=== PATIENT | female | born 1990 | race Asian ===

== ENCOUNTER 2019-04-14 17:49 | Inpatient (IN) | payer MEDICAID ==
[~2019-04-14] VITALS: Ht 165.1 cm; Wt 130.6 kg
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
[2019-04-14 18:14] VITALS: BP 146/95
--- NOTE | 2019-04-14 18:30 | NUR ---
ED Nurse Note: Urine collected and sent down to lab.
--- NOTE | 2019-04-14 19:13 | NUR ---
HAND-OFF: Report given to CORNELIUS Mei.
--- NOTE | 2019-04-14 19:16 | NUR ---
ED Nurse Note: Patient continues to complain of radiating spine pain, 03/30, will consult ER provider.
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
--- NOTE | 2019-04-14 20:00 | NUR ---
ED Nurse Note: Patient tolerated IV start well, blood drawn and sent to lab. mom at bedside,N/S fluid running. Will continue to monitor.
[2019-04-14 20:45] LABS: BASOPHILS % (AUTO) 0.9 % (0.0-2.0); EOSINOPHILS % (AUTO) 0.4 % (0.0-3.0); HEMATOCRIT 41.3 % (37.0-47.0); HEMOGLOBIN 14.1 G/DL (12.0-16.0); LYMPHOCYTES % (AUTO) 36.7 % (20.0-45.0); MEAN CORPUSCULAR VOLUME 89 FL (80-99); MONOCYTES % (AUTO) 8.4 % (1.0-10.0); NEUTROPHILS % (AUTO) 53.7 % (45.0-75.0); PLATELET COUNT 342 K/UL (150-450); RED BLOOD COUNT 4.65 M/UL (4.20-5.40); RED CELL DISTRIBUTION WIDTH 11.3 % (11.6-14.8); WHITE BLOOD COUNT 11.3 K/UL (4.8-10.8)
[2019-04-14 20:50] LABS: ANION GAP 14 mmol/L (5-15); BLOOD UREA NITROGEN 6 mg/dL (7-18); CALCIUM 10.2 MG/DL (8.5-10.1); CARBON DIOXIDE 27 MMOL/L (21-32); CHLORIDE 102 MMOL/L (98-107); CREATININE 0.8 MG/DL (0.55-1.30); POTASSIUM 3.6 MMOL/L (3.5-5.1); SODIUM 143 MMOL/L (136-145)
[2019-04-14 21:03] LABS: ALANINE AMINOTRANSFERASE 43 U/L (12-78); ALBUMIN 4.6 G/DL (3.4-5.0); ALBUMIN/GLOBULIN RATIO 1.1 (1.0-2.7); ALKALINE PHOSPHATASE 66 U/L (46-116); ASPARTATE AMINO TRANSFERASE 48 U/L (15-37); BILIRUBIN,TOTAL 0.4 MG/DL (0.2-1.0); CREATINE KINASE 1112 U/L (26-308)
[2019-04-14] MEDS ORDERED: HALOPERIDOL5 MG/1 ML IJ (21:26)
[2019-04-14] MEDS ORDERED: DOXYLAMINE SUCC PO (21:26)
[2019-04-14] MEDS ORDERED: AMBIEN5 MG ORAL (21:26)
[2019-04-14] MEDS ORDERED: NORCO 5-325 TA1 EACH ORAL (21:26)
[2019-04-14] MEDS ORDERED: KLONOPIN0.5 MG ORAL (21:26)
[2019-04-14] MEDS ORDERED: FLUOXETINE20 MG/5 ML ORAL (21:26)
[2019-04-14] MEDS ORDERED: MEDROXYPROGESTER5 MG PO (21:26)
[2019-04-14] MEDS ORDERED: ASPIRIN325 MG ORAL (21:26)
--- NOTE | 2019-04-14 22:13 | NUR ---
ED Nurse Note: Report called into Krzysztof SHIELDS.
[2019-04-14 22:28] LABS: APPEARANCE,URINE SLIGHTLY CLOUDY; BILIRUBIN, URINE NEGATIVE (NEGATIVE); GLUCOSE, URINE (UA) NEGATIVE (NEGATIVE); KETONES,URINE 1+ (NEGATIVE); LEUKOCYTE ESTERASE ,URINE 2+ (NEGATIVE); NITRITE,URINE NEGATIVE (NEGATIVE); PH,URINE 5 (4.5-8.0); PROTEIN,URINE 2+ (NEGATIVE); UROBILINOGEN,URINE NORMAL MG/DL (0.0-1.0)
[2019-04-14 22:31] LABS: COLOR,URINE YELLOW
--- NOTE | 2019-04-14 22:33 | NUR ---
ED Nurse Note: Patient transported to floor without incident by or scrub tech and RN.
[2019-04-15] VITALS (8 sets, daily range): BP systolic 125–148; BP diastolic 67–90
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
[2019-04-15] MEDS: Zolpidem 5mg tab ORAL PRN ×2 (00:31→22:19)
[2019-04-15] MEDS: HYDROcodone/Acetamin 5/325 tab ORAL PRN ×4 (00:31→18:10)
[2019-04-15] MEDS: Morphine Sulfate 2mg/ml Inj(IV/IM USE ONLY) IVP PRN ×4 (04:00→17:01)
--- NOTE | 2019-04-15 07:00 | NUR ---
HAND-OFF: Report given to Lane SHIELDS. Endorsed plan of care.
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
--- NOTE | 2019-04-15 08:49 | NUR ---
NURSE NOTES: Received report from CORNELIUS Blankenship . patient stated at change of shift that she "can't wait for the doctorfor 8 hours. I have to go home" Patient appeared anxious and stated she had neck and back pain--Dr on unit now--discussed need for psych eval and soc work consult. stated patient can't leave without psych approval. Mother at bedside now and patient calming downj after morphine given for pain per emar. Patient oob walking with steady gait and eating breakfast. Bed in lowest , locked position and adjuster piano action socks on. RETREAD OPERATOR charting in room as added safety. Cont'd with plan of care.
[2019-04-15 09:25] LABS: BASOPHILS % (AUTO) 0.9 % (0.0-2.0); EOSINOPHILS % (AUTO) 0.6 % (0.0-3.0); HEMATOCRIT 37.4 % (37.0-47.0); HEMOGLOBIN 12.3 G/DL (12.0-16.0); LYMPHOCYTES % (AUTO) 36.4 % (20.0-45.0); MEAN CORPUSCULAR VOLUME 91 FL (80-99); MONOCYTES % (AUTO) 7.2 % (1.0-10.0); PLATELET COUNT 300 K/UL (150-450); RED CELL DISTRIBUTION WIDTH 12.6 % (11.6-14.8); WHITE BLOOD COUNT 7.1 K/UL (4.8-10.8)
[2019-04-15] MEDS: Aspirin Baby 81mg ORAL SCH (09:44)
[2019-04-15 09:50] LABS: ANION GAP 12 mmol/L (5-15); BLOOD UREA NITROGEN 6 mg/dL (7-18); CARBON DIOXIDE 26 MMOL/L (21-32); CHLORIDE 105 MMOL/L (98-107); CREATINE KINASE 951 U/L (26-308); CREATININE 0.8 MG/DL (0.55-1.30); POTASSIUM 3.5 MMOL/L (3.5-5.1); SODIUM 142 MMOL/L (136-145)
[2019-04-15] MEDS: clonazePAM 0.5mg tab ORAL PRN ×2 (10:12→17:01)
[2019-04-15] MEDS: MEDROXYPROGESTERONE 2.5 MG ORAL SCH (10:24)
--- NOTE | 2019-04-15 13:59 | NUR ---
NURSE NOTES: Patient stated pain decreased slightly after morphine. Appears anxious but cooperative and mostly calm.--active listening and emotional support offered with good effect. AOX4 and breathing easily with no sign of cardiac distress. Ate lunch with no nvd.
--- NOTE | 2019-04-15 15:28 | NUR ---
NURSE NOTES: Sudden increased agitation at approximately 230 pm . This RN was at lunch, motor bike mechanic calmed patient down and medicated per emar. Currently patient calm as previously seen. IVF disconnected to avoid IV access loss during agitated period of time. Addendum: 04/15/19 at 1538 by Thee Sheldon RN Patient calm now , apologized mary kelly, I am ok now" Mother called and is at bedside.
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
[2019-04-15] MEDS ORDERED: Haloperidol 5mg/ml Inj IM PRN (18:15)
--- NOTE | 2019-04-15 18:58 | NUR ---
NURSE NOTES: Patient found still co pain despite all meds per MAR given--none due at the moment. Walking to toilet with steady gait but patient fatigued--tired appearance but restless. Patient sitting in chair quietly now.
--- NOTE | 2019-04-15 19:30 | NUR ---
NURSE NOTES: Recieved Report from CORNELIUS Sherman. Patient is in bed, awake and responsive, breathing regular with no distress noted at this time. Patient's mother is at bedside with patient. Bed is in lowest position, breaks engaged, call light within reach at all times. Patient's IV is intact and running prescribed fluids. At this time patient is calm. Will continue to monitor.
--- NOTE | 2019-04-15 19:48 | NUR ---
NURSE NOTES: Report given to CORNELIUS Healy.
[2019-04-15] MEDS: DiphenhydrAMINE 50mg/ml Inj IM PRN (20:37)
[2019-04-15] MEDS: LORazepam Inj 2mg/ml 1ml IM PRN (20:37)
[2019-04-16] VITALS (8 sets, daily range): BP systolic 133–158; BP diastolic 82–102
[2019-04-16] MEDS: HYDROcodone/Acetamin 5/325 tab ORAL PRN ×3 (06:18→18:39)
--- NOTE | 2019-04-16 07:14 | NUR ---
NURSE NOTES: Received report CORNELIUS Henderson. Patient asleep with IVF running at 100ml/hr. Bed in lowest , locked postion with call wong in reach. Sitter in room for neighboring bed 2 . Tele monitor found not reading currently. Replaced leads. Addendum: 04/16/19 at 0739 by Thee Sheldon RN Currently reading 96NSR on tele. Patient eating breakfast and stated "I got some sleep. I feel better now." with quiet steady voice. opening eyes spontaneously and aox4 with calm, affect.
[2019-04-16] MEDS: clonazePAM 0.5mg tab ORAL PRN ×2 (07:52→17:21)
[2019-04-16] MEDS: Aspirin Baby 81mg ORAL SCH (08:02)
[2019-04-16] MEDS: MEDROXYPROGESTERONE 2.5 MG ORAL SCH (08:03)
[2019-04-16 08:49] LABS: CREATINE KINASE 633 U/L (26-308)
[2019-04-16] MEDS: Morphine Sulfate 2mg/ml Inj(IV/IM USE ONLY) IVP PRN ×2 (09:24→16:25)
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
--- NOTE | 2019-04-16 10:19 | NUR ---
NURSE NOTES: Dr Esther wilson tele with transfer to [facility] this morning. patient oob with steady gait to toilet to void. Pain management consult placed. Continues to co pain when walking oob. currently calm and cooperative breathign easily on RA , no sign of cardiac distress and VSS. Bed in lowest , locked position. Call wong in reach. Patient is napping intermittently.
--- NOTE | 2019-04-16 11:53 | Consultation ---
History of Present Illness General Date patient seen: Apr 16, 2019 Chief Complaint: Present Illness Allergies: Coded Allergies: No Known Allergies (Unverified , 04/14/19) Medication History Scheduled Aspirin* (Aspirin*), 325 MG ORAL DAILY, (Reported) Clonazepam* (Klonopin*), 0.5 MG ORAL Q6H, (Reported) Fluoxetine Hcl (Fluoxetine Hcl), 20 MG ORAL DAILY, (Reported) Scheduled PRN Hydrocodone Bit/Acetaminophen 5-325* ([place] 5-325*), 1 TAB ORAL Q6H PRN for For Pain, (Reported) Zolpidem Tartrate* (Ambien*), 10 MG ORAL BEDTIME PRN for Insomnia, (Reported) Miscellaneous Medications Doxylamine Succinate (Doxylamine Succinate), 25 MG PO, (Reported) Haloperidol Lactate (Haloperidol), 5 MG IJ, (Reported) Medroxyprogesterone Acetate (Medroxyprogesterone Acetate), 5 MG PO, (Reported) Patient History Healthcare decision maker Resuscitation status Advanced Directive on File Physical Exam Last 24 Hour Vital Signs Date Time Temp Pulse Resp B/P (MAP) Pulse Ox O2 Delivery O2 Flow Rate FiO2 04/16/19 10: 98.6 04/16/19 09:00 Room Air 04/16/19 08:00 89 04/16/19 07:56 98.6 95 20 152/98 (116) 100 04/16/19 04:00 69 04/16/19 03:52 98.4 96 20 133/83 (100) 100 04/16/19 00:00 70 04/15/19 23:59 97.8 68 18 126/67 (86) 99 04/15/19 21:00 Room Air 04/15/19 20:03 97.2 77 18 135/71 (92) 98 04/15/19 20:00 133 04/15/19 18:46 97.5 04/15/19 16:00 102 04/15/19 15:49 97.5 88 18 147/83 (104) 97 04/15/19 12:02 97.1 82 18 141/80 (100) 95 04/15/19 12:00 102 04/15/19 11:58 97.1 82 19 141/80 (100) 96 Intake and Output 04/15/19 04/16/19 19:00 07:00 Intake Total 1260 ml 1918 ml Balance 1260 ml 1918 ml Intake Oral 1160 ml 118 ml IV Total 100 ml 1800 ml # Voids 7 4 Laboratory Tests Test 04/16/19 06:05 Total Creatine Kinase 633 U/L (26-308) H Height (Feet): 5 Height (Inches): 5.00 Weight (Pounds): 280 Medications Current Medications Medications (Trade) Dose Ordered Sig/Drew Route PRN Reason Start Time Stop Time Status Last Admin Dose Admin Acetaminophen/ Hydrocodone Bitart ([place] 5/325) 1 tab Q6H PRN ORAL For Pain 04/15/19 00:15 04/22/19 00:14 04/16/19 06:18 Aspirin (ASA) 81 mg DAILY ORAL 04/15/19 09:00 05/15/19 08:59 04/16/19 08:02 Clonazepam (KlonoPIN) 0.5 mg Q6H PRN ORAL For Anxiety 04/15/19 02:30 04/22/19 02:29 04/16/19 07:52 Diphenhydramine HCl (Benadryl) 25 mg Q8H PRN IM Agitation 04/15/19 18:15 05/15/19 18:14 04/15/19 20:37 Fluoxetine HCl (PROzac) 20 mg DAILY ORAL 04/15/19 09:00 05/15/19 08:59 04/16/19 08:02 Haloperidol (Haldol) 5 mg Q6H PRN ORAL Agitation 04/15/19 02:30 05/15/19 02:29 04/16/19 11:00 Haloperidol Lactate (Haldol) 5 mg Q8H PRN IM Agitation 04/15/19 18:15 05/15/19 18:14 Lorazepam (Ativan 2mg/ml 1ml) 1 mg Q8H PRN IM Agitation 04/15/19 18:15 04/22/19 18:14 04/15/19 20:37 Medroxyprogesterone Acetate (Provera) 5 mg DAILY ORAL 04/15/19 09:00 05/15/19 08:59 04/16/19 08:03 Morphine Sulfate (Morphine Sulfate) 2 mg Q4H PRN IVP For Breakthrough Pain 04/15/19 02:30 04/22/19 02:29 04/16/19 09:24 Ondansetron HCl (Zofran) 4 mg Q4H PRN IVP Nausea & Vomiting 04/15/19 06:30 05/15/19 02:29 Sodium Chloride 1,000 ml @ 100 mls/hr Q10H IV 04/15/19 00:15 05/15/19 00:14 04/16/19 11:03 Zolpidem Tartrate (Ambien) 5 mg HSPRN PRN ORAL Insomnia 04/15/19 00:15 04/22/19 00:14 04/15/19 22:19 Assessment/Plan Assessment/Plan: (1) Cervical and Lumbar Sprain (2) Cervical and Lumbar Radiculopathy (3) Left index Finger Fx s/p surgery (4) Morbid obesity seen dictated Neel Boland Apr 16, 2019 11:53
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
--- NOTE | 2019-04-16 12:20 | NUR ---
NURSE NOTES: Faxed patient request release form to [facility] medical records pertaining to diagnostic test imaging: . Awaiting reply.
[2019-04-16] MEDS: Methocarbamol 500mg tab ORAL PRN (12:40)
[2019-04-16] MEDS: LORazepam Inj 2mg/ml 1ml IM PRN ×2 (13:03→13:06)
[2019-04-16] MEDS: DiphenhydrAMINE 50mg/ml Inj IM PRN ×2 (13:03→13:07)
--- NOTE | 2019-04-16 13:13 | NUR ---
NURSE NOTES:1255pm Patient suddenly came out to sarkar yelling "I have to leave!" Patient removed IV and was extremely agitated. IM given after speaking with Dr Santana of Haldol, ativan, and benadryl. Patient continues to be agitated but is lying in bed with mother at bedside.
[2019-04-16] MEDS ORDERED: Sennosides 8.6mg tab ORAL PRN (13:30)
--- NOTE | 2019-04-16 13:39 | NUR ---
NURSE NOTES: Records requested from [facility] faxed back with no records found for DOS
--- NOTE | 2019-04-16 14:04 | NUR ---
NURSE NOTES: Patient has calmed down and is dozing lightly with mother at bedside. Currently, SR 100BPM on tele.
[2019-04-16] MEDS: Bisacodyl EC 5mg tab ORAL PRN (16:26)
[2019-04-16] MEDS: Docusate 100mg cap ORAL SCH (17:16)
--- NOTE | 2019-04-16 17:39 | NUR ---
NURSE NOTES: Patient currently in bed eating dinner. Calm and cooperative currently and NSR on tele 85 BPM. VSS. Bed in lowest, locked position with call wong in reach. Mother back at bedside now. Multiple visits to ensure patient safety. Patient ate dinner with gusto and requested seconds of sherbet. AOX4, breathing easily RA and no sign of cardiac distress.
--- NOTE | 2019-04-16 18:28 | NUR ---
NURSE NOTES: Patient requested pain meds for 10 pain--norco returned to Pyxis when patient found asleep and mother at bedside, so med returned to pyxis. Patient awoke and requested pain med again. Will retrieve now. Patient was ambulating in sarkar and stated she needed to sit down--after a moment she was steady, but used wheelchair to transport her back to room.
--- NOTE | 2019-04-16 19:27 | NUR ---
NURSE NOTES: Received report from CORNELIUS Sherman. Patient is in bed, responsive to verbal stimuli. Breathing regular with no distress noted at this time. Patient appears drowsy and is still complaining of some pain, but appears comfortable in bed. Bed is in lowest position, breaks engaged, call light within reach. Patient's IV is intact and running fluids at prescribed rate. Will continue to monitor.
--- NOTE | 2019-04-16 19:33 | NUR ---
NURSE NOTES: Report given to CORNELIUS Guaman and CORNELIUS Healy.
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
[2019-04-17] VITALS (7 sets, daily range): BP systolic 127–170; BP diastolic 80–98
[2019-04-17] MEDS: Zolpidem 5mg tab ORAL PRN (00:44)
[2019-04-17] MEDS: Morphine Sulfate 2mg/ml Inj(IV/IM USE ONLY) IVP PRN ×5 (01:04→20:15)
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
--- NOTE | 2019-04-17 07:27 | NUR ---
HAND-OFF: Report given to CORNELIUS Sherman. Patient is asleep lying semi-benjamin's; resting comfortably. In stable condition. 1:1 sitter at bedside.
--- NOTE | 2019-04-17 07:34 | NUR ---
NURSE NOTES: Received report from CORNELIUS Guaman. Patient sleeping and then up walking to toilet with stand by assist. IVF running to R hand patent catheter. Patient stated "I did get some sleep and I feel little better." Breathing easily on RA and no sign of c ardiac distress. Patient up in chair now to eat breakfast. Cynthia Perera, at bedside.
--- NOTE | 2019-04-17 07:46 | NUR ---
NURSE NOTES: CT spine planned today
--- NOTE | 2019-04-17 07:50 | NUR ---
NURSE NOTES: Called Dr Kay' call service notified of pos UTI and no records found with request from [facility]. Addendum: 04/17/19 at 0751 by Thee Sheldon RN Time of call 747am
[2019-04-17] MEDS: Docusate 100mg cap ORAL SCH ×2 (08:49→17:47)
[2019-04-17] MEDS: Aspirin Baby 81mg ORAL SCH (08:49)
[2019-04-17] MEDS: MEDROXYPROGESTERONE 2.5 MG ORAL SCH (08:49)
[2019-04-17] MEDS: Bisacodyl EC 5mg tab ORAL PRN (08:49)
[2019-04-17] MEDS: clonazePAM 0.5mg tab ORAL PRN (08:49)
--- NOTE | 2019-04-17 08:52 | General Progress Note ---
Assessment/Plan Assessment/Plan: (1) Cervical and Lumbar Sprain (2) Cervical and Lumbar Radiculopathy (3) Left index Finger Fx s/p surgery (4) Morbid obesity Pt to be continued on [place], Morphine and Robaxin Neurontin increased to 300mg TID. D/w Dr. Ramos and he concurred. Subjective Date patient seen: Apr 17, 2019 Time patient seen: 08:15 - am Allergies: Coded Allergies: No Known Allergies (Unverified , 04/14/19) Subjective REVIEW OF SYSTEMS: Denies rash, fever, chills, sweating, dizziness, drowsiness, blurred vision, sore throat, or change in her weight. No shortness of breath or chest pain. No nausea, vomiting, diarrhea, or blood in the stool or urine. No bowel or bladder incontinence. No dysuria. She is complaining of neck and back pain. SUBJECTIVE: In bed reports pain has reduced with the muscle relaxer and Neurontin. [facility] records not found. She will be having the CT scan of C spine today. Objective Last 24 Hour Vital Signs Date Time Temp Pulse Resp B/P (MAP) Pulse Ox O2 Delivery O2 Flow Rate FiO2 04/17/19 08:00 98.2 95 22 148/94 (112) 95 04/17/19 08:00 99 04/17/19 04:00 75 04/17/19 04:00 98.0 83 19 150/84 (106) 98 04/17/19 00:00 98.2 20 150/84 (106) 98 04/17/19 00:00 72 04/16/19 21:00 Room Air 04/16/19 20:00 83 04/16/19 20:00 98.1 20 146/82 (103) 97 04/16/19 19:35 97.2 04/16/19 17:32 85 04/16/19 17:15 97.2 04/16/19 16:18 97.2 18 150/91 (110) 95 04/16/19 15:26 100 18 155/91 (112) 97 04/16/19 13:36 122 157/102 (120) 04/16/19 13:26 111 04/16/19 13:25 98.1 04/16/19 13:00 96.6 100 20 138/99 (112) 100 04/16/19 12:00 97.3 100 20 158/102 (120) 100 04/16/19 09:00 Room Air Intake and Output 04/16/19 04/17/19 19:00 07:00 Intake Total 1640 ml 1345 ml Balance 1640 ml 1345 ml Intake Oral 1440 ml 240 ml IV Total 200 ml 1105 ml # Voids 7 3 Height (Feet): 5 Height (Inches): 5.00 Weight (Pounds): 280 Objective GENERAL: Alert, awake, and oriented. LUNGS: Decreased breath sounds bilaterally. HEART: S1 and S2 regular. ABDOMEN: Obese. EXTREMITIES: No cyanosis. No clubbing. NEURO: No changes. Neel Boland Apr 17, 2019 08:52
[2019-04-17 09:37] LABS: CREATINE KINASE 564 U/L (26-308)
[2019-04-17] MEDS: HYDROcodone/Acetamin 5/325 tab ORAL PRN ×2 (09:48→17:47)
--- NOTE | 2019-04-17 09:52 | NUR ---
NURSE NOTES:Dr Kay called again regarding UTI. Dr Boland (pain management team) at bedside asking about records from [facility]--none received . This RN will attempt further discovery of records. Addendum: 04/17/19 at 1020 by Thee Sheldon RN Dr Ger Irby called back. He was aware of urine culture. No new orders.
--- NOTE | 2019-04-17 09:54 | NUR ---
CASE MANAGEMENT:INITIAL REVIEW 28 YR OLD FEMALE VAMSI FROM HOME CC: LOWER BACK PAIN SI: ALTERED MENTAL STATUS; RHABDOMYOLYSIS 98.0 105 18 146/95 99% ON RA WBC 11.3; TOTAL CK 1112; AST 48 IS: IVF NS BOLUS X2 : 2E TELE UNIT (PATIENT IS MED SURG) CASE MANAGEMENT:REVIEW 04/15/19 SI: ALTERED MENTAL STATUS; RHABDOMYOLYSIS 97.6 79 18 136/68 95% ON RA TOTAL CK 951 IS: IVF NS @100HR HALDOL IM Q8/PRN BENADRYL IM Q8/PRN ATIVAN IM Q8/PRN PROVERA PO QD PROZAC PO QD ASA PO QD IV ZOFRAN Q4/PRN IV MORPHINE SULFATE Q4/PRN KLONOPIN PO Q6/PRN : 2E TELE UNIT (PATIENT IS MED SURG) CASE MANAGEMENT:REVIEW 04/16/19 SI: ALTERED MENTAL STATUS; RHABDOMYOLYSIS 98.6 95 20 152/98 100% ON RA TOTAL CK 633 IS: IVF NS @100HR HALDOL IM Q8/PRN BENADRYL IM Q8/PRN ATIVAN IM Q8/PRN PROVERA PO QD PROZAC PO QD ASA PO QD IV ZOFRAN Q4/PRN IV MORPHINE SULFATE Q4/PRN KLONOPIN PO Q6/PRN COLACE PO Q12HR DULCOLAX PO QD/PRN ROBAXIN PO Q8HR/PRN : 2E TELE UNIT (PATIENT IS MED SURG) CASE MANAGEMENT:REVIEW 04/17/19 SI: ALTERED MENTAL STATUS; CERVICAL/LUMBAR RADICULOPATHY; RHABDOMYOLYSIS 98.2 95 22 148/94 100% ON RA TOTAL CK 564 IS: IVF NS @100HR NEURONTIN PO Q8HR HALDOL IM Q8/PRN BENADRYL IM Q8/PRN ATIVAN IM Q8/PRN PROVERA PO QD PROZAC PO QD ASA PO QD IV ZOFRAN Q4/PRN IV MORPHINE SULFATE Q4/PRN KLONOPIN PO Q6/PRN COLACE PO Q12HR DULCOLAX PO QD/PRN ROBAXIN PO Q8HR/PRN : 2E TELE UNIT (PATIENT IS MED SURG) DCP: HOME WHEN MEDICALLY CLEARED
--- NOTE | 2019-04-17 09:55 | NUR ---
NURSE NOTES: Patient screamed out "I need pain pill right now!" heard by this RN from sarkar nearby. Found patient standing at bedside with mother soothing her. Administered norco and patient used toilet to void, then laid down in bed with calm with eyes closed.
--- NOTE | 2019-04-17 10:07 | NUR ---
*-* NO INSURANCE INFORMATION ON THE BAR UNABLE TO SEND CLINICALS OR REVIEWS *-*
--- NOTE | 2019-04-17 10:19 | NUR ---
NURSE NOTES: this RN sent fax again to [facility] for records with expanded dates of service.
--- NOTE | 2019-04-17 10:20 | NUR ---
NURSE NOTES: Patient was calm and alert at time of transport for CT spine. She consented to get records from [facility] (again).
--- NOTE | 2019-04-17 11:39 | NUR ---
NURSE NOTES: Spoke with [facility] records. They received the request for release of records for March and will fax response dorie. Also spoke with [facility] on phone who patient authorized to fax information to 2E regarding R index finger--patient had appointment today for follw up after repair done previously.
--- NOTE | 2019-04-17 12:35 | Diagnostic Imaging Report ---
Indication: Cervical trauma/pain. Technique: Continuous helical imaging of the cervical spine was obtained transaxially from the skull base to the upper thoracic spine. 2-D coronal and sagittal reformatted images were obtained. Automatic Exposure Control was utilized. Total Dose length Product (DLP): 505.[address] Dose Index Volume (CTDIvol): 16.8 mGy Comparison: None Findings: There is significant limitation in evaluation of the mid to lower cervical spine due to artifact related to the patient's shoulders resulting in beam starvation. There is no evidence of an acute fracture or malalignment. Atlantoaxial alignment appears normal. Height and configuration of the vertebral bodies and intervertebral discs are within normal limits. Uncovertebral joints and facets are unremarkable. There is no soft tissue swelling. Impression: Negative cervical spine CT. Study limited by artifact. The CT scanner at [facility] is accredited by the [employer] and the scans are performed using dose optimization techniques as appropriate to a performed exam including Automatic Exposure control.
[2019-04-17] MEDS: Methocarbamol 500mg tab ORAL PRN (13:42)
[2019-04-17] MEDS ORDERED: Bactrim-DS 1 tab ORAL SCH (14:25)
--- NOTE | 2019-04-17 14:25 | NUR ---
NURSE NOTES: Report given to Juarez. Transferred to [facility]. Sitter at bedside with patient. Verified all belongings with patient at time of trransfer including phone and canine service teacher, snacks, birkenstocks. IVF running. Patient aox4 Addendum: 04/17/19 at 1431 by Thee Sheldon RN Breathing easily on RA and stated she is comfortable "I am alright now". Calm affect. Patient called and spoke to mother on her own phone to make her aware of transfer. Tele removed. Addendum: 04/17/19 at 1909 by Thee Sheldon RN Medical records received by fax from [facility]--patient had transferred to at that time. Hand delivered records to CORNELIUS Pizarro. Also, reminder to Juarez to follow up with Claudia in pharmacy regarding records protrayal/history for provera administration.
[2019-04-17] MEDS ORDERED: Zolpidem 5mg tab ORAL PRN (14:30)
[2019-04-17] MEDS ORDERED: DiphenhydrAMINE 50mg/ml Inj IM PRN (14:30)
--- NOTE | 2019-04-17 16:38 | NUR ---
*-* INSURANCE *-* ALL CLINICALS AND REVIEWS HAVE BEEN FAXED TO: [employer] LUCIUS: NICHOLE P: [phone] F: [phone]
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
--- NOTE | 2019-04-17 19:46 | NUR ---
HAND-OFF: Report given to CORNELIUS HODGES.
--- NOTE | 2019-04-17 19:47 | NUR ---
NURSE NOTES: Pt is alert and oriented x4, sitting up in a chair, appears somewhat drowsy but restless. Sitter at bedside with patient. IV patent, asymptomatic, IVF running. Breathing easily on RA and stated she is in pain and her pain medication is "due at 2009"- will continue to monitor patient
[2019-04-17] MEDS: Bactrim-DS 1 tab ORAL SCH (20:16)
[2019-04-17] MEDS ORDERED: Methocarbamol 500mg tab ORAL PRN (22:00)
[2019-04-17] MEDS: LORazepam Inj 2mg/ml 1ml IM PRN (23:32)
[2019-04-17] MEDS: Haloperidol 5mg/ml Inj IM PRN (23:32)
[2019-04-18] VITALS (8 sets, daily range): BP systolic 133–170; BP diastolic 59–101
[2019-04-18] MEDS: HYDROcodone/Acetamin 5/325 tab ORAL PRN ×3 (00:28→12:39)
[2019-04-18] MEDS: clonazePAM 0.5mg tab ORAL PRN ×4 (00:28→22:05)
[2019-04-18] MEDS: Morphine Sulfate 2mg/ml Inj(IV/IM USE ONLY) IVP PRN ×3 (01:42→13:34)
[2019-04-18] MEDS ORDERED: Bisacodyl EC 5mg tab ORAL PRN ×2 (08:00→19:59)
[2019-04-18] MEDS ORDERED: Sennosides 8.6mg tab ORAL PRN ×2 (08:00→20:01)
--- NOTE | 2019-04-18 08:00 | NUR ---
NURSE NOTES: Received patient in bed, alert and awakex4, able to make her needs known, sitter @ bedside. No episodes of screaming but noted with restlessness and agitation by transferring from the bed to chair and asking for pain medications. RN explained about pain medication schedule that nothing is due @ this time. Patient states that she could wait until it is due. Patient is ambulatory but little bit unsteady @ this time. Fall precaution observed and reminded sitter. IV intact, IVF running. No s/s of infiltration on IV site. Will continue plan of care.
[2019-04-18 08:11] LABS: ANION GAP 12 mmol/L (5-15); BLOOD UREA NITROGEN 3 mg/dL (7-18); CALCIUM 9.1 MG/DL (8.5-10.1); CARBON DIOXIDE 25 MMOL/L (21-32); CHLORIDE 104 MMOL/L (98-107); CREATININE 0.9 MG/DL (0.55-1.30); POTASSIUM 3.5 MMOL/L (3.5-5.1); SODIUM 141 MMOL/L (136-145)
[2019-04-18] MEDS: Bactrim-DS 1 tab ORAL SCH ×2 (08:16→22:05)
[2019-04-18] MEDS: Docusate 100mg cap ORAL SCH ×2 (08:17→17:39)
[2019-04-18] MEDS ORDERED: Aspirin Baby 81mg ORAL SCH (09:00)
[2019-04-18] MEDS ORDERED: MEDROXYPROGESTERONE 2.5 MG ORAL SCH (09:00)
[2019-04-18] MEDS ORDERED: Enoxaparin 40mg Inj SUBQ SCH (09:00)
[2019-04-18 09:29] LABS: CREATINE KINASE 728 U/L (26-308)
--- NOTE | 2019-04-18 11:00 | NUR ---
NURSE NOTES: Patient's mom @ the bedside and spoke to Dr. Funk about plan of care.
--- NOTE | 2019-04-18 11:58 | NUR ---
CASE MANAGEMENT:REVIEW 04/18/19 SI: ACUTE ENCEPHALOPATHY; CERVICAL/LUMBAR RADICULOPATHY; RHABDOMYOLYSIS 98.1 90 20 153/85 97% ON RA BUN 3; TOTAL CK 728 IS: IVF NS @100HR LOVENOX SQ QD* ROBAXIN PO Q8/PRN* NEURONTIN PO Q8HR* BACTRIM PO Q12HR* HALDOL IM Q8/PRN BENADRYL IM Q8/PRN ATIVAN IM Q8/PRN PROVERA PO QD* : 4E MED SURG DCP: HOME WHEN MEDICALLY CLEARED/ HOME SAFETY EVAL PLAN: PT EVAL CLEAR LIQ DIET LAB CK Addendum: 04/18/19 at 1221 by KIM PEREZ LVN CASE MANAGEMENT:REVIEW 04/18/19 SI: ACUTE ENCEPHALOPATHY; CERVICAL/LUMBAR RADICULOPATHY; RHABDOMYOLYSIS 98.1 90 20 153/85 97% ON RA BUN 3; TOTAL CK 728 IS: LOVENOX SQ QD* ROBAXIN PO Q8/PRN* NEURONTIN PO Q8HR* BACTRIM PO Q12HR* HALDOL IM Q8/PRN BENADRYL IM Q8/PRN ATIVAN IM Q8/PRN PROVERA PO QD* : 4E MED SURG DCP: HOME WHEN MEDICALLY CLEARED/ HOME SAFETY EVAL PLAN: PT EVAL REG DIET LAB CK
--- NOTE | 2019-04-18 12:05 | NUR ---
NURSE NOTES: RN put wrong diet order under Dr. Capps. Order was cancelled.
--- NOTE | 2019-04-18 13:40 | NUR ---
*-* INSURANCE *-* ALL CLINICALS AND REVIEWS HAVE BEEN FAXED TO: [employer] NCM: NICHOLE P: [phone] F: [phone] CALLED NCM:NICHOLE TO CHECK IF SHE HAS BEEN RECEIVING CLINICALS TRIED CALLING NUMBER NO ANSWER OR VOICEMAIL Addendum: 04/18/19 at 1505 by HUMZA ARMSTRONG NCM: MONICA P: [phone] REF# [id number]
--- NOTE | 2019-04-18 14:16 | General Progress Note ---
Assessment/Plan Assessment/Plan: (1) Cervical and Lumbar Sprain (2) Cervical and Lumbar Radiculopathy (3) Left index Finger Fx s/p surgery (4) Morbid obesity Pt to be continued on Neurontin, [place], Morphine and Robaxin D/w Dr. Ramos and he concurred. Subjective Date patient seen: Apr 18, 2019 Time patient seen: 01:45 - pm Allergies: Coded Allergies: No Known Allergies (Unverified , 04/14/19) Subjective REVIEW OF SYSTEMS: Denies rash, fever, chills, sweating, dizziness, drowsiness, blurred vision, sore throat, or change in her weight. No shortness of breath or chest pain. No nausea, vomiting, diarrhea, or blood in the stool or urine. No bowel or bladder incontinence. No dysuria. She is complaining of neck and back pain. SUBJECTIVE: Patient is in bed and pain is better tolerated on the increase of Neurontin, using 5 Morphine and 4 [place] in the last 24hrs. No new complaints at this time. Pain is at a moderate level. Objective Last 24 Hour Vital Signs Date Time Temp Pulse Resp B/P (MAP) Pulse Ox O2 Delivery O2 Flow Rate FiO2 04/18/19 12:00 97.5 97 20 147/96 (113) 98 04/18/19 09:00 Room Air 04/18/19 08:00 98.1 90 20 153/85 (107) 97 04/18/19 04:00 98.3 90 20 158/94 (115) 98 04/18/19 00:00 97.9 86 20 148/59 (88) 98 04/17/19 21:00 98.0 94 20 140/80 (100) 98 04/17/19 21:00 Room Air 04/17/19 20:28 98.3 97 20 170/98 (122) 97 04/17/19 16:00 98.3 97 20 127/86 (100) 97 Intake and Output 04/17/19 04/18/19 19:00 07:00 Intake Total 1600 ml 400 ml Balance 1600 ml 400 ml Intake Oral 1500 ml IV Total 100 ml 400 ml # Voids 8 6 Laboratory Tests 04/18/19 07:45: Sodium Level 141, Potassium Level 3.5, Chloride Level 104, Carbon Dioxide Level 25, Anion Gap 12, Blood Urea Nitrogen 3L, Creatinine 0.9, Estimat Glomerular Filtration Rate > 60, Glucose Level 116H, Calcium Level 9.1, Total Creatine Kinase 728H Height (Feet): 5 Height (Inches): 5.00 Weight (Pounds): 280 Objective GENERAL: Alert, awake, and oriented. LUNGS: Decreased breath sounds bilaterally. HEART: S1 and S2 regular. ABDOMEN: Obese. EXTREMITIES: No cyanosis. No clubbing. NEURO: No changes. Neel Boland Apr 18, 2019 14:16
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
[2019-04-18] MEDS ORDERED: Sodium Chloride 550 ML IV SCH (16:45)
--- NOTE | 2019-04-18 16:50 | NUR ---
NURSE NOTES: Patient came to the station and asked for pain medication,Rn let patient sit on the chair, patient was perspiring and noted with excessive salivation and drools, noted with slight jerky movement. V/S stable, afebrile. Alert and oriented x4, able to make her needs known. Rn explained to the patient that no pain med is due and while Rn was talking to the patient patient dozed off. Assited patient back to room safely without issue.Patient's mom came and stayed with patient.per mom patient has been having perspiring and drooling since Wednesday. RN left to message to Dr. Dean regarding patient's condition. Awaiting for return call.
--- NOTE | 2019-04-18 16:59 | Cardiology Report ---
APPROVED REPORT EKG Measurement Heart [id number] ME [id number] [id number] Normal sinus rhythm Normal ECG
[2019-04-18] MEDS: LORazepam Inj 2mg/ml 1ml IM PRN ×2 (17:40→22:07)
[2019-04-18] MEDS: Haloperidol 5mg/ml Inj IM PRN (17:40)
--- NOTE | 2019-04-18 17:55 | NUR ---
NURSE NOTES: Patient is sitting in the chair screaming and agitation with restlessness, she is back and forth to the restroom and bed, mom @ bedside, non -pharmaceutical intervention was ineffective. Given ativan and haldol IM, seperated the site.Asssited patient to back in bed.Will continue to monitor.
--- NOTE | 2019-04-18 18:05 | NUR ---
NURSE NOTES: Patient is in bed, mom @ bedside, patient tries to get up without assist. Noted with perspiring,her is face warm to touch.Patient is agitated. Patient's blood pressure is 170/101 and pulse is fluctuating from 100-126.Patient denies chest pain or SOB @ this time. O2sat is 98% in room air. Paged Dr. Kay's covering.
--- NOTE | 2019-04-18 18:15 | NUR ---
NURSE NOTES: patient is in bed, more calm @ this time. Rechecked V/S BP 146/96, pulse is 115. Received a call from Dr. Doss to transfer patient to tele. Charge nurse and housed dry cleaning supervisor notified.
--- NOTE | 2019-04-18 18:50 | NUR ---
NURSE NOTES: Transferred patient to tele safely and report given to Melvi. All belongings were sent with the patient. Patient's mom stated that patient had clothing and medications brought from home but when tele nurse received patient from ER ,it was not addressed in belongings list.Her only belonging logged in the paper was cell phone and in flight crew member. Endorsed to tele nurse.
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
[2019-04-18] MEDS ORDERED: Methocarbamol 500mg tab ORAL PRN (20:00)
[2019-04-18] MEDS ORDERED: Haloperidol 5mg/ml Inj IM PRN ×2 (20:00→20:15)
--- NOTE | 2019-04-18 20:00 | NUR ---
NURSE NOTES: QUALITY CONTROL TESTER at bedside with patient.
[2019-04-18] MEDS ORDERED: Morphine Sulfate 2mg/ml Inj(IV/IM USE ONLY) IVP PRN (20:01)
[2019-04-18] MEDS: Zolpidem 5mg tab ORAL PRN (22:05)
[2019-04-18] MEDS: Sodium Chloride 550 ML IV SCH (22:08)
--- NOTE | 2019-04-18 23:00 | NUR ---
NURSE NOTES: RN at bedside with patient continuously monitoring patient.
[2019-04-19] VITALS: BP 108/70
[2019-04-19] MEDS: Sodium Chloride 550 ML IV SCH ×6 (00:47→22:06)
[2019-04-19 04:00] VITALS: BP 149/89
--- NOTE | 2019-04-19 04:21 | NUR ---
NURSE NOTES: Resting throughout the night. No significant change of condition noted. Will continue to monitor.
--- NOTE | 2019-04-19 07:30 | NUR ---
HAND-OFF: Report given to CORNELIUS Brunson. Plan of care endorsed.
--- NOTE | 2019-04-19 07:30 | NUR ---
NURSE NOTES: Pt received from CORNELIUS Soni in stabel condition with no cardiopulmonary distress noted. Pt is awake in bed, AAO x3, on RA, ST on cardiac monitor technician (currently 112 bpm), pt noted to be mildly diaphoretic and shaking, VS noted and recorded, no skin alterations noted. pt has a LFA 22g IV. Sitter (Yesenia) at bedside. Bed in lowest position, alarm on, side rails up x3, call light within reach. Will continue to monitor.
[2019-04-19 08:00] VITALS: BP 136/89
[2019-04-19] MEDS: Enoxaparin 40mg Inj SUBQ SCH (08:23)
[2019-04-19] MEDS: LORazepam Inj 2mg/ml 1ml IM PRN (08:26)
[2019-04-19] MEDS: MEDROXYPROGESTERONE 2.5 MG ORAL SCH (08:26)
[2019-04-19] MEDS: Bactrim-DS 1 tab ORAL SCH ×2 (08:26→20:34)
[2019-04-19] MEDS: Docusate 100mg cap ORAL SCH ×2 (08:26→17:21)
--- NOTE | 2019-04-19 08:45 | NUR ---
PT NOTE Received MD order for PT evaluation however patient transferred to tele. Will need new MD order for PT evaluation due to transfer to tele. Patient discharged from PT at this time. Discussed with Nannette SHIELDS, will follow.
--- NOTE | 2019-04-19 08:47 | General Progress Note ---
Assessment/Plan Assessment/Plan: (1) Cervical and Lumbar Sprain (2) Cervical and Lumbar Radiculopathy (3) Left index Finger Fx s/p surgery (4) Morbid obesity Pt to be continued on Neurontin, [place], Morphine and Robaxin D/w Dr. Ramos and he concurred. Subjective Date patient seen: Apr 19, 2019 Time patient seen: 08:15 - am Allergies: Coded Allergies: No Known Allergies (Unverified , 04/14/19) Subjective REVIEW OF SYSTEMS: Denies rash, fever, chills, sweating, dizziness, drowsiness, blurred vision, sore throat, or change in her weight. No shortness of breath or chest pain. No nausea, vomiting, diarrhea, or blood in the stool or urine. No bowel or bladder incontinence. No dysuria. She is complaining of neck and back pain. SUBJECTIVE: Patient showing no signs of pain or distress. Pain has been reducing and tolerated on the [place] and Morphine as needed. no new complaints at this time. Objective Last 24 Hour Vital Signs Date Time Temp Pulse Resp B/P (MAP) Pulse Ox O2 Delivery O2 Flow Rate FiO2 04/19/19 04:00 80 04/19/19 04:00 98.1 91 20 149/89 (109) 95 04/19/19 00:00 97.3 91 19 108/70 (83) 95 04/19/19 00:00 83 04/18/19 21:00 Room Air 04/18/19 20:30 98.5 87 20 133/83 (100) 97 04/18/19 20:00 135 04/18/19 20:00 97.0 114 22 151/80 (103) 95 04/18/19 18:05 98.7 132 20 170/101 (124) 99 04/18/19 16:00 97.9 90 20 149/94 (112) 99 04/18/19 12:00 97.5 97 20 147/96 (113) 98 04/18/19 09:00 Room Air Intake and Output 04/18/19 04/19/19 18:59 06:59 Intake Total 525 ml 1525 ml Balance 525 ml 1525 ml Intake Oral 400 ml 400 ml IV Total 125 ml 1125 ml # Voids 7 6 # Bowel Movements 4 Height (Feet): 5 Height (Inches): 5.00 Weight (Pounds): 287 Objective GENERAL: Alert, awake, and oriented. LUNGS: Decreased breath sounds bilaterally. HEART: S1 and S2 regular. ABDOMEN: Obese. EXTREMITIES: No cyanosis. No clubbing. NEURO: No changes. Neel Boland Apr 19, 2019 08:47
[2019-04-19] MEDS ORDERED: Aspirin Baby 81mg ORAL SCH (09:00)
[2019-04-19] MEDS ORDERED: Miralax 17gm pkt ORAL PRN (10:00)
--- NOTE | 2019-04-19 10:07 | NUR ---
CASE MANAGEMENT:REVIEW 04/19/19 SI: ACUTE ENCEPHALOPATHY; CERVICAL/LUMBAR RADICULOPATHY; RHABDOMYOLYSIS; UTI 97.2 112 22 136/89 98% ON RA 04/18=BUN 3; TOTAL CK 728 IS: LOVENOX SQ QD ROBAXIN PO Q8/PRN* NEURONTIN PO Q8HR BACTRIM PO Q12HR* HALDOL IM Q8/PRN BENADRYL IM Q8/PRN ATIVAN IM Q8/PRN PROVERA PO QD ASA PO QD COLACE PO BID PROZAC PO QQ AMBIEN PO HS : TX 2E TELE UNIT DCP: HOME WHEN MEDICALLY CLEARED/ HOME SAFETY EVAL Addendum: 04/19/19 at 1426 by KIM PEREZ LVN CASE MANAGEMENT:REVIEW 04/19/19 PATIENT TRANSFERRED TO TELE UNIT: PATIENT FOUND PERSPIRING AND DROOLING; HR 120'S SUSTAIN; BP 170/101 SI: ACUTE ENCEPHALOPATHY; CERVICAL/LUMBAR RADICULOPATHY; RHABDOMYOLYSIS; UTI 97.2 112 22 136/89 98% ON RA 04/18=BUN 3; TOTAL CK 728 IS: LOVENOX SQ QD ROBAXIN PO Q8/PRN* NEURONTIN PO Q8HR BACTRIM PO Q12HR* HALDOL IM Q8/PRN BENADRYL IM Q8/PRN ATIVAN IM Q8/PRN PROVERA PO QD ASA PO QD COLACE PO BID PROZAC PO QQ AMBIEN PO HS : TX 2E TELE UNIT DCP: HOME WHEN MEDICALLY CLEARED/ HOME SAFETY EVAL
[2019-04-19] MEDS ORDERED: Aspirin EC 81mg tab ORAL SCH (10:30)
--- NOTE | 2019-04-19 10:57 | NUR ---
RD ASSESSMENT & RECOMMENDATIONS SEE CARE ACTIVITY FOR COMPLETE ASSESSMENT DAILY ESTIMATED NEEDS: Needs based on Obese, 74kg adj 20-25 kcals/kg 0416-1727 total kcals 1-1.2 g protein/kg 74-89 g total protein 25-30 mL/kg 6029-0593 total fluid mLs NUTRITION DIAGNOSIS: Obese, etiology unknown as evidenced by BMI morbidly obese per guidelines, pt is 224% of ideal body weight. PO DIET RECOMMENDATIONS: Maintain regular diet w/ current variable po intake ADDITIONAL RECOMMENDATIONS: 1) Obtain calibrated bed scale wts Standing preferable as able 2) Monitor renal labs w/ Rhabdo dx 3) BG mildly elev, monitor need for carb control diet Consider A1C
[2019-04-19 11:03] LABS: BASOPHILS % (AUTO) 0.6 % (0.0-2.0); EOSINOPHILS % (AUTO) 0.5 % (0.0-3.0); HEMATOCRIT 41.5 % (37.0-47.0); HEMOGLOBIN 13.7 G/DL (12.0-16.0); LYMPHOCYTES % (AUTO) 17.3 % (20.0-45.0); MEAN CORPUSCULAR VOLUME 91 FL (80-99); MONOCYTES % (AUTO) 6.8 % (1.0-10.0); NEUTROPHILS % (AUTO) 74.9 % (45.0-75.0); PLATELET COUNT 326 K/UL (150-450); RED BLOOD COUNT 4.57 M/UL (4.20-5.40); RED CELL DISTRIBUTION WIDTH 12.7 % (11.6-14.8); WHITE BLOOD COUNT 9.7 K/UL (4.8-10.8)
[2019-04-19 11:12] LABS: ALANINE AMINOTRANSFERASE 47 U/L (12-78); ALBUMIN 4.2 G/DL (3.4-5.0); ALKALINE PHOSPHATASE 62 U/L (46-116); ANION GAP 10 mmol/L (5-15); ASPARTATE AMINO TRANSFERASE 56 U/L (15-37); BILIRUBIN,TOTAL 0.4 MG/DL (0.2-1.0); BLOOD UREA NITROGEN 5 mg/dL (7-18); CALCIUM 9.2 MG/DL (8.5-10.1); CARBON DIOXIDE 25 MMOL/L (21-32); CHLORIDE 103 MMOL/L (98-107); CREATINE KINASE 1292 U/L (26-308); CREATININE 0.8 MG/DL (0.55-1.30); POTASSIUM 3.8 MMOL/L (3.5-5.1); SODIUM 138 MMOL/L (136-145)
[2019-04-19 12:00] VITALS: BP 141/75
[2019-04-19] MEDS ORDERED: LORazepam Inj 2mg/ml 1ml IV PRN ×2 (13:11→14:30)
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
[2019-04-19 16:00] VITALS: BP 143/92
[2019-04-19] MEDS: clonazePAM 0.5mg tab ORAL PRN (16:04)
[2019-04-19] MEDS: HYDROcodone/Acetamin 5/325 tab ORAL PRN (17:21)
--- NOTE | 2019-04-19 19:07 | NUR ---
HAND-OFF: Report given to Billy Herndon RN. Pt in stable condition.
[2019-04-19 20:00] VITALS: BP 120/58
--- NOTE | 2019-04-19 20:10 | NUR ---
Pt received from Omar SHIELDS. Pt stable. No acute distress. Sinus tach on surveillance system monitor. VS stable. IV intact. Sitter 1:1 at bedside. Bed in lowest position, call light within reach. Continue with plan of care.
[2019-04-19] MEDS ORDERED: Fleet's Mineral Oil Enema RECTAL SCH (21:00)
[2019-04-19] MEDS: Methocarbamol 500mg tab ORAL SCH (21:11)
[2019-04-19] MEDS: Zolpidem 5mg tab ORAL PRN (22:41)
[2019-04-20] VITALS: BP 129/59
[2019-04-20] MEDS: Sodium Chloride 550 ML IV SCH ×2 (02:48→07:39)
[2019-04-20 04:00] VITALS: BP 124/88
[2019-04-20] MEDS: clonazePAM 0.5mg tab ORAL PRN (04:22)
[2019-04-20] MEDS: HYDROcodone/Acetamin 5/325 tab ORAL PRN (05:48)
[2019-04-20] MEDS: Methocarbamol 500mg tab ORAL SCH (05:49)
[2019-04-20 07:16] LABS: BASOPHILS % (AUTO) 0.9 % (0.0-2.0); EOSINOPHILS % (AUTO) 0.7 % (0.0-3.0); HEMATOCRIT 37.3 % (37.0-47.0); HEMOGLOBIN 12.4 G/DL (12.0-16.0); LYMPHOCYTES % (AUTO) 19.9 % (20.0-45.0); MEAN CORPUSCULAR VOLUME 91 FL (80-99); MONOCYTES % (AUTO) 7.1 % (1.0-10.0); NEUTROPHILS % (AUTO) 71.4 % (45.0-75.0); PLATELET COUNT 303 K/UL (150-450); RED BLOOD COUNT 4.11 M/UL (4.20-5.40); RED CELL DISTRIBUTION WIDTH 12.9 % (11.6-14.8); WHITE BLOOD COUNT 7.4 K/UL (4.8-10.8)
[2019-04-20 07:34] LABS: ANION GAP 12 mmol/L (5-15); BLOOD UREA NITROGEN 4 mg/dL (7-18); CALCIUM 9.2 MG/DL (8.5-10.1); CARBON DIOXIDE 25 MMOL/L (21-32); CHLORIDE 103 MMOL/L (98-107); CREATINE KINASE 1446 U/L (26-308); CREATININE 0.8 MG/DL (0.55-1.30); PHOSPHORUS 3.1 MG/DL (2.5-4.9); POTASSIUM 3.8 MMOL/L (3.5-5.1); SODIUM 140 MMOL/L (136-145)
--- NOTE | 2019-04-20 07:38 | NUR ---
HAND-OFF: Report given to Irene Iniguez RN. Patient stable. Plan of care endorsed.
--- NOTE | 2019-04-20 07:50 | NUR ---
NURSE NOTES: Nurse report given by CORNELIUS Cervantes. Patient's awake, anxious and keep pacing in her room. AO x 3, denies pain, no s/s of distress or SOB, sweat. 1:1 sitter present. IV is running fluid, no s/s of infiltration, tenderness or redness. Bed low and locked, call light within reach, side rails x 2, ambulates well, all needs met. Will continue to monitor closely.
[2019-04-20 08:00] VITALS: BP 137/97
[2019-04-20] MEDS: MEDROXYPROGESTERONE 2.5 MG ORAL SCH (08:48)
[2019-04-20] MEDS: Docusate 100mg cap ORAL SCH (08:49)
[2019-04-20] MEDS: Bactrim-DS 1 tab ORAL SCH (08:49)
[2019-04-20] MEDS: Enoxaparin 40mg Inj SUBQ SCH (08:50)
[2019-04-20] MEDS ORDERED: Aspirin EC 325mg tab ORAL SCH (09:00)
--- NOTE | 2019-04-20 09:08 | General Progress Note ---
Assessment/Plan Assessment/Plan: (1) Cervical and Lumbar Sprain (2) Cervical and Lumbar Radiculopathy (3) Left index Finger Fx s/p surgery (4) Morbid obesity Pt to be continued on Neurontin, [place], Morphine and Robaxin D/w Dr. Ramos and he concurred. Subjective Date patient seen: Apr 20, 2019 Time patient seen: 08:30 - am Allergies: Coded Allergies: No Known Allergies (Unverified , 04/14/19) Subjective REVIEW OF SYSTEMS: Denies rash, fever, chills, sweating, dizziness, drowsiness, blurred vision, sore throat, or change in her weight. No shortness of breath or chest pain. No nausea, vomiting, diarrhea, or blood in the stool or urine. No bowel or bladder incontinence. No dysuria. She is complaining of neck and back pain. SUBJECTIVE: Patient states that she is doing much better and pain has greatly reduced on the medications. She would like to be discharged home, mother at bedside. No new complaints at this time. Objective Last 24 Hour Vital Signs Date Time Temp Pulse Resp B/P (MAP) Pulse Ox O2 Delivery O2 Flow Rate FiO2 04/20/19 08:00 98.6 97 20 137/97 (110) 97 04/20/19 06:18 98.1 04/20/19 05:49 124/88 04/20/19 04:00 104 04/20/19 04:00 98.1 105 18 124/88 (100) 99 04/20/19 00:00 98.0 85 18 129/59 (82) 99 04/20/19 00:00 120/58 04/20/19 00:00 83 04/19/19 21:00 Room Air 04/19/19 20:00 97.9 85 18 120/58 (78) 99 04/19/19 17:21 143/92 04/19/19 16:00 126 04/19/19 16:00 97.7 98 18 143/92 (109) 98 04/19/19 12:00 98.0 110 20 141/75 (97) 96 04/19/19 12:00 110 04/19/19 10:36 136/89 Intake and Output 04/19/19 04/20/19 18:59 06:59 Intake Total 1921 ml Balance 1921 ml Intake Oral 650 ml IV Total 1271 ml # Voids 7 6 # Bowel Movements 1 Laboratory Tests 04/19/19 10:20: White Blood Count 9.7, Red Blood Count 4.57, Hemoglobin 13.7, Hematocrit 41.5, Mean Corpuscular Volume 91, Mean Corpuscular Hemoglobin 30.0, Mean Corpuscular Hemoglobin Concent 33.0, Red Cell Distribution Width 12.7, Platelet Count 326, Mean Platelet Volume 5.6L, Neutrophils (%) (Auto) 74.9, Lymphocytes (%) (Auto) 17.3L, Monocytes (%) (Auto) 6.8, Eosinophils (%) (Auto) 0.5, Basophils (%) (Auto ) 0.6, Sodium Level 138, Potassium Level 3.8, Chloride Level 103, Carbon Dioxide Level 25, Anion Gap 10, Blood Urea Nitrogen 5L, Creatinine 0.8, Estimat Glomerular Filtration Rate > 60, Glucose Level 102, Calcium Level 9.2, Total Bilirubin 0.4, Aspartate Amino Transf (AST/SGOT) 56H, Alanine Aminotransferase ( ALT/SGPT) 47, Alkaline Phosphatase 62, Total Creatine Kinase 1292H, Troponin I 0.000, Total Protein 8.4H, Albumin 4.2, Globulin 4.2, Albumin/Globulin Ratio 1.0 , Thyroid Stimulating Hormone (TSH) 0.699, Free Thyroxine 1.05, Triiodothyonine (T3) 91, Free Triiodothyronine 2.1L, Cortisol AM Sample 16.6 04/20/19 06:19: White Blood Count 7.4, Red Blood Count 4.11L, Hemoglobin 12.4, Hematocrit 37.3, Mean Corpuscular Volume 91, Mean Corpuscular Hemoglobin 30.2, Mean Corpuscular Hemoglobin Concent 33.4, Red Cell Distribution Width 12.9, Platelet Count 303, Mean Platelet Volume 5.7L, Neutrophils (%) (Auto) 71.4, Lymphocytes (%) (Auto) 19.9L, Monocytes (%) (Auto) 7.1, Eosinophils (%) (Auto) 0.7, Basophils (%) (Auto ) 0.9, Sodium Level 140, Potassium Level 3.8, Chloride Level 103, Carbon Dioxide Level 25, Anion Gap 12, Blood Urea Nitrogen 4L, Creatinine 0.8, Estimat Glomerular Filtration Rate > 60, Glucose Level 98, Calcium Level 9.2, Total Creatine Kinase 1446H, Phosphorus Level 3.1, Magnesium Level 2.0 Height (Feet): 5 Height (Inches): 5.00 Weight (Pounds): 287 Objective GENERAL: Alert, awake, and oriented. LUNGS: Decreased breath sounds bilaterally. HEART: S1 and S2 regular. ABDOMEN: Obese. EXTREMITIES: No cyanosis. No clubbing. NEURO: No changes. Neel Boland Apr 20, 2019 09:08
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
--- NOTE | 2019-04-20 10:29 | NUR ---
CASE MANAGEMENT:REVIEW 04/20/19 04/19PATIENT TRANSFERRED TO TELE UNIT: PATIENT FOUND PERSPIRING AND DROOLING; HR 120'S SUSTAIN; BP 170/101 SI: ACUTE ENCEPHALOPATHY;RHABDOMYOLYSIS 98.6 97 20 137/97 97% ON RA BUN 4; TOTAL CK 1446 IS: IVF NS @250HR/ Q4 LOVENOX SQ QD CLONIDINE PO Q6HR KLONOPIN PO Q6/PRN ROBAXIN PO Q8 NEURONTIN PO Q8HR BACTRIM PO Q12HR BENADRYL IM Q8/PRN ATIVAN IM Q8/PRN PROVERA PO QD ASA PO QD COLACE PO BID PROZAC PO QQ HALDOL IM Q8/PRN AMBIEN PO HS [place] PO QD/PRN : [place] 2E TELE UNIT DCP: HOME WHEN MEDICALLY CLEARED/ HOME SAFETY EVAL PLAN: ST VIDEO SWALLOW CHECK CK @ 1200 TODAY
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
[2019-04-20 11:57] LABS: CREATINE KINASE 1485 U/L (26-308)
[2019-04-20 12:00] VITALS: BP 148/87
[2019-04-20] MEDS ORDERED: NEURONTIN300 MG ORAL (12:48)
[2019-04-20] MEDS ORDERED: FLUOXETINE HCL40 MG ORAL (12:48)
[2019-04-20] MEDS ORDERED: ROBAXIN-500MG ORAL (12:48)
--- NOTE | 2019-04-20 12:52 | Discharge Instructions ---
Discharge Instructions Discharge Instructions Follow up with: PCP within one week Services at Discharge: home health services, other - Home health for medication management and safety eval Additional Diet Information: Supervise all meals Resume Normal Activity?: Yes Activity: ambulate w/ assist only, up w/ walker Special Instructions Limit use of [place] and ambien to only as prescribed. Parents are the only ones who are allowed to keep your medications. Drink plenty of water for the next few days. Follow up with your PCP next week and request labs be drawn (BMP, CK). Return if your symptoms worsen or fail to improve Robret Norris D.O. Apr 20, 2019 12:52
[2019-04-20] MEDS ORDERED: NS 500ML ONE (13:49)
--- NOTE | 2019-04-20 13:50 | NUR ---
NURSE NOTES: Patient's discharged per Dr. Norris's order. Patient's in stable condition, no s/s distress or SOB, denies pain, ambulates and AO x 3. Patient's belonging list, discharge instructions and documents went over with patient and signed by patient and nurse at bedside. ID discarded properly, IV and electronic device monitor removed. Patient's discharged home with new medications to be picked up by patient's preferred pharmacy and home with walker. Patient's discharged with her mother assist and off the floor by 1350.
--- NOTE | 2019-04-20 16:07 | NUR ---
*-* INSURANCE *-* ALL CLINICALS AND REVIEWS HAVE BEEN FAXED TO: [employer] HUNG: MONICA F: [phone] P: [phone] REF# [id number]
--- NOTE | 2019-04-20 16:07 | NUR ---
DISCHARGE PLANNING: DISCUSSED DISCHARGE WITH PATIENT AND MOTHER AT BEDSIDE PATIENT STATES SHE IS READY FOR DISCHARGE, AND FATHER TRANSPORT PATIENT HOME HOME SAFETY EVAL REQUEST NEED TO OBTAIN A WRITTEN ORDER WILL FAX TO [facility] INSURANCE WILL AUTHORIZE BUT A FAX WRITTEN ORDER NEEDED [facility] WILL FOLLOW T: [phone] F: [phone]
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
--- NOTE | 2019-04-21 02:31 | Progress Note ---
DATE: 04/20/2019 SUBJECTIVE: The patient is doing well. No behavior issues noted. The patient is having anxiety. Her CK level is up, stated she wants to leave. Discussed the case with the primary physician. The patient is calm, cooperative and is able to understand process, communicate rationally. MENTAL STATUS EXAMINATION: The patient is alert and oriented times self, place. Mood is neutral and dysphoric. Affect is constricted, congruent with mood. Thought process is linear and goal oriented. Thought content, no suicidal or homicidal ideation. ASSESSMENT: Stable. PLAN: 1. We will continue current medications. 2. Provide the patient with reality orientation and supportive therapy. Felice Dean M.D. DR: JAMES JOB#: [id number] CC:
--- NOTE | 2019-04-21 13:27 | NUR ---
*-* INSURANCE *-* DISCHARGE SUMMARY HAS BEEN FAXED TO: [employer] HUNG: MONICA F: [phone] P: [phone] REF# [id number]
== END 2019-04-20 13:50 | disposition home or self-care (01) | DRG 52 ==
LOC: EDBD 17:49 → EMR 20:15 → 2E 21:57 → EDBEDREQ 21:57 → 2E 23:16 → OBSVTOIN 04-15 02:40 → 4E 04-17 14:31 → 2E 04-18 18:51
DX: G92 Toxic encephalopathy (principal); M54.12 Radiculopathy, cervical region; M54.16 Radiculopathy, lumbar region; F13.239 Sedative, hypnotic or anxiolytic dependence with withdrawal, unspecified; M62.82 Rhabdomyolysis; N39.0 Urinary tract infection, site not specified; F11.23 Opioid dependence with withdrawal; E66.01 Morbid (severe) obesity due to excess calories; F20.9 Schizophrenia, unspecified; R26.9 Unspecified abnormalities of gait and mobility; M62.838 Other muscle spasm; F41.9 Anxiety disorder, unspecified; S33.5XXD Sprain of ligaments of lumbar spine, subsequent encounter; S13.9XXD Sprain of joints and ligaments of unspecified parts of neck, subsequent encounter; V89.2XXD Person injured in unspecified motor-vehicle accident, traffic, subsequent encounter; Z68.42 Body mass index [BMI] 45.0-49.9, adult
CPT/HCPCS: 36415; 72125; 80048; 80053; 80307; 81003; 81025; 82533; 82550; 82962; 83735; 84100; 84439; 84443; 84481; 84484; 85025; 87086; 87181; 93005; 96360; 96361; 99285; G0480; J7030

== ENCOUNTER 2019-04-28 21:14 | Emergency (ER) | payer MEDICAID ==
[~2019-04-28] VITALS: Ht 165.1 cm; Wt 124.7 kg
[~2019-04-28 21:14] MED LIST: AMBIEN5 MG ORAL; ASPIRIN325 MG ORAL; DOXYLAMINE SUCC PO; FLUOXETINE HCL40 MG ORAL; FLUOXETINE20 MG/5 ML ORAL; HALOPERIDOL5 MG/1 ML IJ; KLONOPIN0.5 MG ORAL; MEDROXYPROGESTER5 MG PO; NEURONTIN300 MG ORAL; NORCO 5-325 TA1 EACH ORAL; ROBAXIN-500MG ORAL
--- NOTE | 2019-04-28 21:16 | NUR ---
ED Nurse Note: pt was brought in by ambulance accompanied by her mother from home for C/O generalized body pain and had not been sleeping for the last 6 days. pt is alert, VSS. pt has Hx of schizophrenia.
[2019-04-28 21:17] VITALS: BP 160/96
--- NOTE | 2019-04-28 21:38 | NUR ---
ED Nurse Note: blood sample sent down to lab
[2019-04-28] MEDS ORDERED: LORazepam Inj 2mg/ml 1ml IV ONE (21:45)
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
[2019-04-28 22:01] LABS: ANION GAP 10 mmol/L (5-15); BLOOD UREA NITROGEN 11 mg/dL (7-18); CALCIUM 9.6 MG/DL (8.5-10.1); CARBON DIOXIDE 28 MMOL/L (21-32); CHLORIDE 102 MMOL/L (98-107); CREATININE 0.7 MG/DL (0.55-1.30); POTASSIUM 4.3 MMOL/L (3.5-5.1); SODIUM 140 MMOL/L (136-145)
[2019-04-28 22:05] LABS: ALANINE AMINOTRANSFERASE 66 U/L (12-78); ALBUMIN 4.3 G/DL (3.4-5.0); ALKALINE PHOSPHATASE 73 U/L (46-116); ASPARTATE AMINO TRANSFERASE 49 U/L (15-37); BILIRUBIN,TOTAL 0.3 MG/DL (0.2-1.0); CREATINE KINASE 628 U/L (26-308)
[2019-04-28 22:09] LABS: EOSINOPHILS % (AUTO) 0.8 % (0.0-3.0); HEMATOCRIT 41.8 % (37.0-47.0); HEMOGLOBIN 14.3 G/DL (12.0-16.0); LYMPHOCYTES % (AUTO) 33.8 % (20.0-45.0); MEAN CORPUSCULAR VOLUME 88 FL (80-99); MONOCYTES % (AUTO) 11.6 % (1.0-10.0); NEUTROPHILS % (AUTO) 52.8 % (45.0-75.0); PLATELET COUNT 348 K/UL (150-450); RED BLOOD COUNT 4.75 M/UL (4.20-5.40); RED CELL DISTRIBUTION WIDTH 11.6 % (11.6-14.8); WHITE BLOOD COUNT 8.7 K/UL (4.8-10.8)
--- NOTE | 2019-04-28 22:45 | NUR ---
ED Nurse Note: urine sample sent down to lab
[2019-04-28 22:50] LABS: APPEARANCE,URINE CLEAR; BILIRUBIN, URINE NEGATIVE (NEGATIVE); COLOR,URINE PALE YELLOW; GLUCOSE, URINE (UA) NEGATIVE (NEGATIVE); KETONES,URINE NEGATIVE (NEGATIVE); LEUKOCYTE ESTERASE ,URINE 1+ (NEGATIVE); NITRITE,URINE NEGATIVE (NEGATIVE); PH,URINE 5 (4.5-8.0); PROTEIN,URINE NEGATIVE (NEGATIVE); UROBILINOGEN,URINE NORMAL MG/DL (0.0-1.0)
[2019-04-28 23:35] VITALS: BP 152/82
--- NOTE | 2019-04-28 23:35 | NUR ---
ER DISCHARGE NOTE: Patient is cleared to be discharged per ERMD, pt is aox4, on room air, with stable vital signs. pt was given dc instructions, pt was able to verbalize understanding, pt id band and iv site removed without complications. pt is able to ambulate with steady gait. pt took all belongings.
--- NOTE | 2019-04-29 15:18 | Cardiology Report ---
APPROVED REPORT EKG Measurement Heart [id number] Normal sinus rhythm Cannot rule out Inferior infarct, age undetermined Abnormal ECG
== END 2019-04-28 23:35 | disposition home or self-care (01) ==
LOC: EDBD 21:14 → EMR 21:28
DX: G47.00 Insomnia, unspecified (principal); F41.9 Anxiety disorder, unspecified; F19.939 Other psychoactive substance use, unspecified with withdrawal, unspecified; F20.9 Schizophrenia, unspecified; F32.9 Major depressive disorder, single episode, unspecified
CPT/HCPCS: 36415; 80053; 80307; 81003; 82550; 83605; 85025; 93005; 96374; G0480; G0481; Z7502; 99284